=== PATIENT | female | born 2005 | race Hispanic/Latino ===

== ENCOUNTER 2025-02-13 05:42 | Emergency (ER) | payer SELFPAY ==
[~2025-02-13] VITALS: Ht 154.9 cm; Wt 55.3 kg
--- NOTE | 2025-02-13 06:04 | ERN ---
ED Note History of Present Illness Stated Complaint: RT WRIST PAIN, NO INJURY Chief Complaint: Wrist Pain/Injury Time Seen by MD: 05:58 Dictation: This is a 19-year-old female who presented to the emergency room complaining of right wrist pain that has been going on since October 2024. The pain was so severe last night that she came into the ER for evaluation. No history of any fall or injury to the right wrist. Afebrile blood pressure 130/85 pulse 65 respirations 16 pulse oximetry 98% on room air Allergies: Coded Allergies: No Known Allergies (Unverified Allergy, Unknown, 02/13/25) Past Medical History Past Medical History: No Pertinent History Surgical History: None Family History: Negative LMP: Dec 31, 2024 RN Note Reviewed/Agreed w/PFSH: Yes Review of System Dictation Constitutional: Negative for fever,chills, and weight loss Eyes: Negative for injury, pain,redness, and discharge ENT: Negative for injury,pain or swelling Cardiovascular: Negative for chest pain, palpitations, and edema Respiratory: Negative for shortness of breath, cough, and wheezing, Abdomen/GI: Negative for abdominal pain, nausea, vomiting, diarrhea, and constipation Back: Negative for injury and pain : Negative for injury, bleeding and discharge MS/Extremity: Negative for injury and deformity positive for right wrist pain Skin: Negative for rash, and discoloration Neuro: Negative for headache, weakness, numbness, tingling, and seizure Psych: Negative for suicide ideation, homicidal ideation, and hallucinations Initial Vital Sign VS Vital Signs Date Time Temp Pulse Resp B/P (MAP) Pulse Ox O2 Delivery O2 Flow Rate FiO2 02/13/25 05:43 98.1 65 16 130/85 98 Room Air 02/13/25 05:53 0 21 Physical Exam Dictation General: awake, alert, NAD Head/Face: Normocephalic, atraumatic Eyes: PERRL, EOMI, vision at baseline ENT: oral cavity clear, TMs clear, no signs of infection Neck: Trachea midline, supple, no nuchal rigidity Cardiovascular: RRR, normal S1/S2, No MRGs, no JVD Respiratory: CTAB, no respiratory distress, No rales or wheezes Abdomen: Soft, non-tender, non-distended, normal bowel sounds, no guarding or rebound. Skin: Warm, dry, normal turgor, no rash MS/Extremity: Pulses equal, no cyanosis, neurovascular intact, FROM right wrist median nerve distribution pain and tenderness to palpation Neuro: COAx4, GCS 15, strength 5/5, CN 2-12 intact, normal cerebellar exam, normal gait, Psych: Normal behavior, mood, and affect normal Extremities-trace edema without any palpable cords, Homans sign is negative Results (Laboratory/Radiology) Laboratory/Radiology Laboratory Tests Test 02/13/25 06:09 Urine HCG, Qualitative NEGATIVE (NEGATIVE) Labs Reviewed?: Yes ED Course ED Course Orders Procedure Category Date Status Time Wrist Comp 3+Vws Rt RAD 02/13/25 Taken 06:02 ,Urine Test LAB 02/13/25 Complete 06:02 Ketorolac PHA 02/13/25 Complete Tromethamine 15mg/Ml 07:00 Current Medications Medications (Trade) Dose Ordered Sig/Haven Route PRN Reason Start Time Stop Time Status Last Admin Dose Admin Ketorolac Tromethamine (toRADol) 15 mg ONCE ONCE IM 02/13/25 07:00 02/13/25 07:01 DC 02/13/25 07:00 Vital Signs Date Time Temp Pulse Resp B/P (MAP) Pulse Ox O2 Delivery O2 Flow Rate FiO2 02/13/25 05:53 98.1 60 18 125/80 98 Room Air* 0 21 02/13/25 05:43 98.1 65 16 130/85 98 Room Air Medical Decision Making MDM Differential diagnosis: Carpal tunnel syndrome, arthritis, hairline fracture of any bones, median nerve, ulnar nerve or radial nerve neuropathy This is a 19-year-old female who presented to the emergency room for evaluation of right wrist pain going on for about 3-4 months. She denied any injury or lifting any heavy weights. She denied any tingling and numbness or temperature changes. She thought it was a sprain and would go away however this is gone on for a long time and hence she came in. Pain is along the distribution of the median nerve and there is swelling and tenderness in the palm. No erythema or open wounds. Labs reviewed urine test is negative Reviewed x-ray of the right wrist-which did not show any obvious fractures I recommended evaluation by Orthopedics and gave a referral and patient is agreeable to see Rationale: Tests considered and ordered secondary to shared decision making include: Previous outside records reviewed: No Old ER visits. Risk of complication and/or morbidity or mortality of patient management: None Medications-Per medication reconciliation--none Need for hospitalization: Patient does not meet criteria for hospitalization. Need for emergency major/minor surgery: No There are no social concerns with this patient. Prescription drug management Prescriptions will include symptomatic care Patient's prior external medical records from other ER visits were reviewed by me as indicated. Prior testing and results from previous visits were reviewed. Prior tests were taken into account with medical decision making and resource utilization, independent historian/historians were used to obtain complete medical history. I independently interpreted the test that were performed, results were reviewed by me and considered findings on radiology if ordered. Medical management and examination interpretation discussions were had by me with other qualified healthcare professionals as indicated for the patient's care. DX & DISP Disposition: Discharge Departure Impression: Primary Impression: Pain and swelling of right wrist Additional Impression: Right median nerve neuropathy Condition: Stable Additional Instructions: Patient and the caregiver have been informed of all the diagnostic tests and the imaging conducted during the today's visit to the emergency room and has dave balized understanding of the results I have personally reviewed and interpreted all diagnostic exams performed here in the ER today as well as the vital signs documented by the nursing staff. The patient is now being discharged to home and should follow up with the primary care physician or the specialist as directed by the ER staff. Follow-up with primary care provider in 1 to 2 days. Take medications as directed here in the emergency room. Okay to continue home medications unless otherwise discussed during your visit in the emergency room today. Return to your nearest emergency room if symptoms worsen or if there is no improvement. Call 911 if you need immediate assistance. Take Tylenol or Motrin [id number] as needed and if no contraindications are present. Increase oral hydration. A wound culture or urine culture was ordered here in the emergency room department please follow-up with primary care provider and advise them to get repeat ports from our facility. If you had any Kan wrap/splints that were applied here, please do not remove them until you see your primary care or specialty. Referrals: NONE (PCP) ALEXI VARGAS MD, ANURADHA R MD Feb 13, 2025 06:04
[2025-02-13 07:42] VITALS: BP 124/68; PULSE 62; RESP 18; TEMP 98.2; O2SAT 98
--- NOTE | 2025-02-13 08:39 | HMCIMG ---
EXAM: CR right Wrist, 3 View. CLINICAL HISTORY: severe wrist pain. No other history provided. No history of trauma or lack of trauma provided. COMPARISON: None provided. FINDINGS: BONES: No acute osseous abnormality. No acute fracture. JOINTS: No dislocation. The carpal bones demonstrate normal alignment. SOFT TISSUES: The soft tissues are unremarkable. IMPRESSION: No acute osseous abnormality. No acute fracture or dislocation. /[place]
== END 2025-02-13 07:43 | disposition home or self-care (01) ==
LOC: EDH 05:42
DX: G56.11 Other lesions of median nerve, right upper limb (principal); M25.531 Pain in right wrist
CPT/HCPCS: 99284; 81025; 73110; 96372; J1885